=== PATIENT | female | born 1955 ===

== ENCOUNTER 2024-08-22 10:19 | Emergency (ER) | payer SELFPAY ==
[~2024-08-22] VITALS: Ht 165.1 cm; Wt 59.1 kg
[2024-08-22 10:24] VITALS: TEMP 98.5
[2024-08-22] MEDS ORDERED: ALBU18HF12 IH ×2 (10:24→15:10)
[2024-08-22 10:55] LABS: BASOPHILS % (AUTO) 0.4 % (0.0-2.0); EOSINOPHILS % (AUTO) 0.4 % (1.0-6.0); HEMATOCRIT 36.9 % (36-46); HEMOGLOBIN 12.6 g/dL (12.0-16.0); LYMPHOCYTES # (AUTO) 1.8 K/uL (1.0-4.8); LYMPHOCYTES % (AUTO) 30.6 % (22.0-44.0); MEAN CORPUSCULAR HEMOGLOBIN 33.2 pg (26.0-34.0); MEAN CORPUSCULAR HGB CONC 34.1 G/dL (31.0-37.0); MEAN CORPUSCULAR VOLUME 97 fL (80-100); MONOCYTES # (AUTO) 0.3 K/uL (0.1-1.0); MONOCYTES % (AUTO) 5.6 % (2.0-9.0); NEUTROPHILS # (AUTO) 3.8 K/uL (1.8-7.7); PLATELET COUNT (AUTO) 228 K/uL (150-450); RED BLOOD CELL COUNT(AUTO) 3.79 MIL/uL (4.00-5.20); RED CELL DISTRIBUTION WIDTH 13.2 % (11.5-14.5)
[2024-08-22 11:04] LABS: ANION GAP 6 mmol/L (8-16); CALCIUM, TOTAL 8.6 mg/dL (8.8-10.5); CARBON DIOXIDE 27 mmol/L (22-29); CHLORIDE 106 mmol/L (98-107); CREATININE 0.87 mg/dL (0.60-1.30); GLOMERULAR FILTR. RATE CALC > 60 mL/min (>60); GLUCOSE,RANDOM 163 mg/dL (70-110); SODIUM SERUM 139 mmol/L (136-145); UREA NITROGEN, BLOOD 7 mg/dL (7-18)
[2024-08-22 11:12] LABS: ALANINE AMINOTRANSFERASE 18 U/L (12-78); ALBUMIN 3.6 g/dL (3.4-5.0); ALKALINE PHOSPHATASE 117 U/L (46-116); ASPARTATE AMINOTRANSFERASE 14 U/L (15-37); BILIRUBIN,TOTAL 0.3 mg/dL (0.1-1.0); LIPASE 32 U/L (16-77); TOTAL PROTEIN, SERUM 7.7 g/dL (6.4-8.2)
[2024-08-22] MEDS ORDERED: IOHEXOL 350 MG/ML 100 ML VIAL ONE (11:12)
[2024-08-22] MEDS ORDERED: SODIUM CHLORIDE 0.9% 100 ML ONE (11:12)
[2024-08-22] MEDS: IPRATROPIUM BROMIDE 0.5 MG/2.5 ML NEB SOLUTION NEB ONE (11:26)
[2024-08-22] MEDS: ALBUTEROL SULFATE 2.5 MG/0.5 ML NEB SOLUTION NEB ONE (11:26)
[2024-08-22 11:27] LABS: COVID AG,FIA SOURCE NASAL SWAB
[2024-08-22] MEDS: ONDANSETRON HCL 4 MG/2 ML VIAL IVP ONE (11:28)
[2024-08-22] MEDS: ACETAMINOPHEN 500 MG TABLET PO ONE (11:29)
[2024-08-22 11:42] VITALS: PULSE 72; RESP 16; O2SAT 96
[2024-08-22 11:43] VITALS: PULSE 72; RESP 16; O2SAT 96
[2024-08-22 11:49] LABS: SARS-COV2 (COVID) ANTIGEN,FIA Negative (Negative)
[2024-08-22 11:50] LABS: INFLUENZA TYPE A NEGATIVE FOR TYPE A (NEGATIVE); INFLUENZA TYPE B NEGATIVE FOR TYPE B (NEGATIVE)
[2024-08-22 11:51] LABS: APPEARANCE,URINE CLEAR (CLEAR); BILIRUBIN,URINE NEGATIVE (NEGATIVE); COLOR,URINE COLORLESS (YELLOW); GLUCOSE, URINE (UA) NEGATIVE (NEGATIVE); KETONES,URINE NEGATIVE (NEGATIVE); LEUKOCYTE ESTERASE ,URINE NEGATIVE (NEGATIVE); NITRATE,URINE NEGATIVE (NEGATIVE); OCCULT BLOOD,URINE NEGATIVE (NEGATIVE); PROTEIN,URINE NEGATIVE (NEGATIVE); SPECIFIC GRAVITIY, URINE 1.009 (1.003-1.030); UROBILINOGEN,URINE <=1.0 mg/dL (<=1.0)
[2024-08-22 11:58] VITALS: PULSE 76; RESP 16; O2SAT 100
[2024-08-22] MEDS ORDERED: ACET-66 PO (15:10)
[2024-08-22] MEDS ORDERED: OMEP20 PO (15:10)
[2024-08-22 15:30] VITALS: BP 157/84; PULSE 71; RESP 20; O2SAT 97
== END 2024-08-22 16:25 | disposition home or self-care (01) ==
LOC: EMS 10:44
DX: J44.1 Chronic obstructive pulmonary disease with (acute) exacerbation (principal); R10.33 Periumbilical pain; R04.0 Epistaxis; Z20.822 Contact with and (suspected) exposure to COVID-19
CPT/HCPCS: 99285; 71260; 96374; 71045; 87426; 80048; 80076; 81003; 83690; 83880; 85025; 87804; 36415; 94640; 74177; 93005; Q9967; J2405; J7050; 72193; 74160; J7613